=== PATIENT | female | born 1990 | race Caucasian/White ===

== ENCOUNTER 2019-07-03 01:26 | Inpatient (IN) ==
[2019-07-03] MEDS ORDERED: OXYTOCIN 30 UNITS/500 ML BAG IV PRN ×2 (02:11→08:45)
[2019-07-03 02:42] LABS: Hematocrit (blood only) 38.7 % (37-47); Hemoglobin 13.5 g/dL (12.0-16.0); Mean Corpuscular Hemoglobin 32.1 pg (25-34); Mean Corpuscular Volume 92.1 fL (80-100); Mean Platelet Volume 11.5 fL (7.4-10.4); Platelet Count 186 K/uL (130-400); RDW Coefficient of Variation 12.7 % (11.5-14.5); RDW Standard Deviation 42.9 fL (36.4-46.3)
[2019-07-03 02:45] LABS: Mean Corpuscular Hgb Conc 34.9 g/dL (32-36)
[2019-07-03] MEDS ORDERED: ePHEDrine sulfate 50 MG/ML AMP ONE (03:47)
[2019-07-03] MEDS ORDERED: fentaNYL citrate 100 MCG/2 ML VIAL ONE (03:47)
[2019-07-03] MEDS ORDERED: BUPIVACAINE 0.25% 30 ML VIAL ONE (03:47)
[2019-07-03] MEDS ORDERED: fentaNYL 2MCG/ML ROPIV 1.25MG/ML 100 ML BAG EPI ONE (03:48)
[2019-07-03] MEDS ORDERED: fentaNYL 2MCG/ML ROPIV 1.25MG/ML 100 ML BAG EPI PRN (04:01)
[2019-07-03] MEDS ORDERED: NALBUPHINE HCL INJ 10 MG/ML AMP IV PRN (04:01)
[2019-07-03] MEDS ORDERED: NALOXONE HCL 1 MG in SODIUM CHLORIDE 0.9% 1000ML 1,000 ML IV PRN (04:01)
[2019-07-03] MEDS ORDERED: ePHEDrine sulfate 50 MG/ML AMP IV PRN (04:01)
[2019-07-03] MEDS ORDERED: ONDANSETRON INJ 2 MG/ML 2 ML VIAL IV PRN (04:01)
[2019-07-03] MEDS ORDERED: DiphenhydrAMINE HCL 50 MG/ML VIAL IV PRN (04:01)
[2019-07-03] MEDS ORDERED: NALOXONE HCL 0.4 MG/1 ML VIAL/CARP IV PRN (04:01)
--- NOTE | 2019-07-03 04:10 | Anesthesiology Consultation ---
Date of Service July 03, 2019 Assessment & Plan Chart Review Chart Review: Patient NOT seen in Pre Admission Testing and Acceptable Risk for Labor Epidural Consults Requested none ASA ASA2 Proposed Anesthesia Anesthesia Type: Labor Epidural and CSE Risk / Benefits Reviewed With: PT / POA / Parent / Guardian, Accepts Plan and Informed Consent Obtained History Height/Weight Height: 5 ft 8 in Weight: 87.09 kg Allergies Allergy/AdvReac Type Severity Reaction Status Date / Time No Known Allergies Allergy Verified 06/29/19 13:01 Medications Home Medications Medication Instructions Recorded Confirmed Last Taken vitamin #56-iron 35 mg 1 cap PO DAILY 01/22/19 07/03/19 07/02/19 10:00 and 5 mg-folic acid 1 mg-dha capsule sertraline 50 mg tablet 50 mg PO DAILY #90 tab 03/08/19 07/03/19 07/02/19 10:00 NPO Date Last Intake of Fluids: 07/03/19 Time Last Intake of Fluids: 03:30 Date Last Intake of Solids: 07/03/19 Time Last Intake of Solids: 03:30 Past Medical History Medical History Varicella Exercise / Class Metabolic Activity II 4-5 Yardwork/Stairs/Walk up hill Past Family History Family History Grandmother (Maternal) Multiple gestation Mother Depression Past Surgical History Surgical History S/P wisdom tooth extraction Past Anesthesia History No Hx of Anesthesia Complications and No Family Hx of Anesthesia Complications History of PONV No Hx of PONV and No Hx of Motion Sickness Social History Smoking Status: Never smoker Do You Dip or Chew Tobacco: No Hx Alcohol Use: No Hx Substance Use: No substance use type: does not use Review of Systems no chest pain or sob Physical Exam Vital Signs Last Vital Signs Temp 36.7 C 07/03/19 01:48 Pulse 60 07/03/19 04:03 Resp 18 07/03/19 01:48 BP 117/80 07/03/19 03:32 Pulse Ox 99 07/03/19 04:03 ENMT Mouth: no TMJ abnormality Thyromental Distance: > or= 3.5 Finger Breadths Mallampati Class: II Neck normal visual inspection Respiratory normal respiratory effort Auscultation: lungs clear to auscultation bilaterally Cardiovascular Rate/Rhythm: regular rate and regular rhythm Musculoskeletal Spine: normal cervical ROM Neurologic moves all extremities Psychiatric Orientation: alert and oriented x 3 Testing Laboratory Results 07/03/19 02:29
[2019-07-03] MEDS: LACTATED RINGER'S 1,000 ML IV PRN ×3 (04:42→07:46)
--- NOTE | 2019-07-03 06:53 | Labor Progress Brief Note ---
Date of Service July 03, 2019 Subjective Comfortable with epidural Assessment & Plan (1) Normal labor and delivery: Spontaneous onset of labor, now ruptured, epidural in place. Making change, continue current management. Physical Exam Physical Exam: 80/-2 AROM light mec stained fluid, copious. FHT Cat 1 toco Q3. Results & Data Vital Signs (Past 12 Hours) Vital Signs Temp Pulse Resp BP Pulse Ox 07/03/19 06:48 63 100 07/03/19 06:43 64 100 07/03/19 06:42 59 L 117/76 07/03/19 06:38 62 100 07/03/19 06:33 59 L 100 07/03/19 06:28 66 112/79 100 07/03/19 06:23 62 100 07/03/19 06:18 67 100 07/03/19 06:13 64 124/68 99 07/03/19 06:08 58 L 99 07/03/19 06:03 57 L 97 07/03/19 06:01 98.2 F 07/03/19 05:58 58 L 97 07/03/19 05:57 58 L 96/51 L 07/03/19 05:53 57 L 97 07/03/19 05:48 62 97 07/03/19 05:43 59 L 96 07/03/19 05:42 57 L 95/51 L 07/03/19 05:38 59 L 97 07/03/19 05:33 59 L 97 07/03/19 05:32 62 102/58 L 07/03/19 05:31 16 07/03/19 05:28 58 L 97 07/03/19 05:27 56 L 93/54 L 07/03/19 05:23 58 L 96 07/03/19 05:18 57 L 96 07/03/19 05:13 54 L 97/53 L 98 07/03/19 05:08 56 L 98 07/03/19 05:03 58 L 98 07/03/19 05:01 98.2 F 16 07/03/19 04:59 56 L 101/59 L 07/03/19 04:58 56 L 99 07/03/19 04:53 65 99 07/03/19 04:48 55 L 97/55 L 99 07/03/19 04:43 63 99 07/03/19 04:42 66 95/58 L 07/03/19 04:39 100/59 L 07/03/19 04:38 63 103/58 L 99 07/03/19 04:37 68 104/58 L 07/03/19 04:35 60 101/57 L 07/03/19 04:34 61 106/56 L 07/03/19 04:33 65 100 07/03/19 04:29 70 139/81 07/03/19 04:28 76 100 07/03/19 04:24 63 131/90 07/03/19 04:23 64 100 07/03/19 04:18 58 L 100 07/03/19 04:13 59 L 99 07/03/19 04:08 63 99 07/03/19 04:03 60 99 07/03/19 03:58 60 99 07/03/19 03:53 59 L 98 07/03/19 03:32 60 117/80 07/03/19 01:48 98.1 F 57 L 18 125/77 07/03/19 01:45 98.1 F 18 07/03/19 01:41 57 L 125/77 07/03/19 01:40 56 L 123/73 Coding Level of Care Code None Diagnoses Normal labor and delivery O80
--- NOTE | 2019-07-03 08:45 | Labor Progress Brief Note ---
Date of Service July 03, 2019 Subjective Reason For Note: Other (Change of shift) Change of shift note: The patient is a 29-year-old 1 para 0, EDC of 30 June, at 40+ weeks gestational age who was admitted to labor and delivery. The patient had documented cervical change and was admitted for labor. Change of shift with provider assuming care for the patient at 0830 on 02 July. The patient has had a benign course. Her blood type is A+, antibody negative, rubella immune, hepatitis B negative, negative cell free DNA screen, declined cystic fibrosis and SMA screen, elevated 1 hour Glucola at 16 weeks, normal 2-hour glucose tolerance test at 16 and 28 weeks, and a negative third trimester beta strep culture. Assessment & Plan (1) Prolonged , antepartum: -Tracing category 2 with moderate variability and accelerations -No appreciable cervical change in the last 3 hours -Will start Pitocin augmentation for arrest of dilatation -All questions answered of the patient -Anticipate vaginal delivery Physical Exam Gastrointestinal (Abdomen): Abdomen: Gravid, vertex, positive heart tones, estimated weight of 8 pounds Genitourinary: Cervix: 6 cm / 80%/-2 station Results & Data Vital Signs (Past 12 Hours) Vital Signs Temp Pulse Resp BP Pulse Ox 07/03/19 08:38 64 97 07/03/19 08:33 65 99 07/03/19 08:28 68 99 07/03/19 08:27 75 118/70 07/03/19 08:23 70 99 07/03/19 08:18 61 98 07/03/19 08:13 64 121/68 96 07/03/19 08:08 64 98 07/03/19 08:03 69 98 07/03/19 07:58 69 130/87 99 07/03/19 07:53 80 99 07/03/19 07:48 58 L 99 07/03/19 07:43 66 112/73 98 07/03/19 07:38 60 98 07/03/19 07:33 58 L 98 07/03/19 07:28 67 99 07/03/19 07:27 67 113/76 07/03/19 07:23 68 99 07/03/19 07:18 70 99 07/03/19 07:13 58 L 98 07/03/19 07:12 98.4 F 63 20 121/83 07/03/19 07:08 67 100 07/03/19 07:03 64 99 07/03/19 06:58 63 98 07/03/19 06:57 62 113/74 07/03/19 06:53 57 L 100 07/03/19 06:48 63 100 07/03/19 06:43 64 100 07/03/19 06:42 59 L 117/76 07/03/19 06:38 62 100 07/03/19 06:33 59 L 100 07/03/19 06:30 16 07/03/19 06:28 66 112/79 100 07/03/19 06:23 62 100 07/03/19 06:18 67 100 07/03/19 06:13 64 124/68 99 07/03/19 06:08 58 L 99 07/03/19 06:03 57 L 97 07/03/19 06:01 98.2 F 07/03/19 05:58 58 L 97 07/03/19 05:57 58 L 96/51 L 07/03/19 05:53 57 L 97 07/03/19 05:48 62 97 07/03/19 05:43 59 L 96 07/03/19 05:42 57 L 95/51 L 07/03/19 05:38 59 L 97 07/03/19 05:33 59 L 97 07/03/19 05:32 62 102/58 L 07/03/19 05:31 16 07/03/19 05:28 58 L 97 07/03/19 05:27 56 L 93/54 L 07/03/19 05:23 58 L 96 07/03/19 05:18 57 L 96 07/03/19 05:13 54 L 97/53 L 98 07/03/19 05:08 56 L 98 07/03/19 05:03 58 L 98 07/03/19 05:01 98.2 F 07/03/19 04:59 56 L 101/59 L 07/03/19 04:58 56 L 99 07/03/19 04:53 65 99 07/03/19 04:48 55 L 97/55 L 99 07/03/19 04:43 63 99 07/03/19 04:42 66 95/58 L 07/03/19 04:39 100/59 L 07/03/19 04:38 63 103/58 L 99 07/03/19 04:37 68 104/58 L 07/03/19 04:35 98.6 F 60 16 101/57 L 07/03/19 04:34 61 106/56 L 07/03/19 04:33 65 100 07/03/19 04:29 70 139/81 07/03/19 04:28 76 100 07/03/19 04:24 63 131/90 07/03/19 04:23 64 100 07/03/19 04:18 58 L 100 07/03/19 04:13 59 L 99 07/03/19 04:08 63 99 07/03/19 04:03 60 99 07/03/19 03:58 60 99 07/03/19 03:53 59 L 98 07/03/19 03:32 60 117/80 07/03/19 01:48 98.1 F 57 L 18 125/77 07/03/19 01:45 98.1 F 18 07/03/19 01:41 57 L 125/77 07/03/19 01:40 56 L 123/73 Coding Diagnoses Prolonged , antepartum O48.1
--- NOTE | 2019-07-03 12:12 | Labor Progress Brief Note ---
Date of Service July 03, 2019 Subjective Reason For Note: Routine Evaluation Assessment & Plan (1) Prolonged , antepartum: - tracing Cat II, moderate variability with accelerations3 - will begin 2nd stage Physical Exam Genitourinary: Cervix: Complete/(+)1-(+)2 Results & Data Vital Signs (Past 12 Hours) Vital Signs Temp Pulse Resp BP Pulse Ox 07/03/19 12:03 75 99 07/03/19 11:58 59 L 97 07/03/19 11:57 67 105/73 07/03/19 11:53 67 98 07/03/19 11:48 60 99 07/03/19 11:43 67 112/69 98 07/03/19 11:38 62 98 07/03/19 11:33 66 98 07/03/19 11:28 63 122/80 99 07/03/19 11:23 62 99 07/03/19 11:18 64 98 07/03/19 11:13 60 117/79 98 07/03/19 11:08 66 99 07/03/19 11:03 67 99 07/03/19 10:58 64 99 07/03/19 10:57 71 108/67 07/03/19 10:53 69 99 07/03/19 10:48 73 99 07/03/19 10:43 79 100 07/03/19 10:42 68 129/80 07/03/19 10:38 82 98 07/03/19 10:33 64 98 07/03/19 10:28 68 99 07/03/19 10:27 79 115/84 07/03/19 10:23 66 99 07/03/19 10:18 72 99 07/03/19 10:13 83 109/76 99 07/03/19 10:08 68 99 07/03/19 10:03 65 98 07/03/19 09:58 64 113/70 98 07/03/19 09:53 61 98 07/03/19 09:48 75 97 07/03/19 09:43 62 110/71 97 07/03/19 09:38 63 98 07/03/19 09:33 62 97 07/03/19 09:28 60 109/73 97 07/03/19 09:23 66 97 07/03/19 09:18 62 97 07/03/19 09:13 58 L 97 07/03/19 09:12 81 99/60 L 07/03/19 09:08 71 98 07/03/19 09:03 61 98 07/03/19 09:00 98.4 F 20 07/03/19 08:58 64 118/79 98 07/03/19 08:53 67 98 07/03/19 08:48 62 97 07/03/19 08:43 82 98 07/03/19 08:42 68 110/69 07/03/19 08:38 64 97 07/03/19 08:33 65 99 07/03/19 08:28 68 99 07/03/19 08:27 75 118/70 07/03/19 08:23 70 99 07/03/19 08:18 61 98 07/03/19 08:13 64 121/68 96 07/03/19 08:08 64 98 07/03/19 08:03 69 98 07/03/19 07:58 69 130/87 99 07/03/19 07:53 80 99 07/03/19 07:48 58 L 99 07/03/19 07:43 66 112/73 98 07/03/19 07:38 60 98 07/03/19 07:33 58 L 98 07/03/19 07:28 67 99 07/03/19 07:27 67 113/76 07/03/19 07:23 68 99 07/03/19 07:18 70 99 07/03/19 07:13 58 L 98 07/03/19 07:12 98.4 F 63 20 121/83 07/03/19 07:08 67 100 07/03/19 07:03 64 99 07/03/19 06:58 63 98 07/03/19 06:57 62 113/74 07/03/19 06:53 57 L 100 07/03/19 06:48 63 100 07/03/19 06:43 64 100 07/03/19 06:42 59 L 117/76 07/03/19 06:38 62 100 07/03/19 06:33 59 L 100 07/03/19 06:30 16 07/03/19 06:28 66 112/79 100 07/03/19 06:23 62 100 07/03/19 06:18 67 100 07/03/19 06:13 64 124/68 99 07/03/19 06:08 58 L 99 07/03/19 06:03 57 L 97 07/03/19 06:01 98.2 F 16 07/03/19 05:58 58 L 97 07/03/19 05:57 58 L 96/51 L 07/03/19 05:53 57 L 97 07/03/19 05:48 62 97 07/03/19 05:43 59 L 96 07/03/19 05:42 57 L 95/51 L 07/03/19 05:38 59 L 97 07/03/19 05:33 59 L 97 07/03/19 05:32 62 102/58 L 07/03/19 05:31 16 07/03/19 05:28 58 L 97 07/03/19 05:27 56 L 93/54 L 07/03/19 05:23 58 L 96 07/03/19 05:18 57 L 96 07/03/19 05:13 54 L 97/53 L 98 07/03/19 05:08 56 L 98 07/03/19 05:03 58 L 98 07/03/19 05:01 98.2 F 16 07/03/19 04:59 56 L 101/59 L 07/03/19 04:58 56 L 99 07/03/19 04:53 65 99 07/03/19 04:48 55 L 97/55 L 99 07/03/19 04:43 63 99 07/03/19 04:42 66 95/58 L 07/03/19 04:39 100/59 L 07/03/19 04:38 63 103/58 L 99 07/03/19 04:37 68 104/58 L 07/03/19 04:35 98.6 F 60 16 101/57 L 07/03/19 04:34 61 106/56 L 07/03/19 04:33 65 100 07/03/19 04:29 70 139/81 07/03/19 04:28 76 100 07/03/19 04:24 63 131/90 07/03/19 04:23 64 100 07/03/19 04:18 58 L 100 07/03/19 04:13 59 L 99 07/03/19 04:08 63 99 07/03/19 04:03 60 99 07/03/19 03:58 60 99 07/03/19 03:53 59 L 98 07/03/19 03:32 60 117/80 07/03/19 01:48 98.1 F 57 L 18 125/77 07/03/19 01:45 98.1 F 18 07/03/19 01:41 57 L 125/77 07/03/19 01:40 56 L 123/73 Coding Level of Care Code None Diagnoses Prolonged , antepartum O48.1
--- NOTE | 2019-07-03 15:19 | Labor Progress Brief Note ---
Date of Service July 03, 2019 Subjective Reason For Note: Routine Evaluation Assessment & Plan (1) Prolonged , antepartum: - tracing Cat II, variability and accels - pt pushing for 2 1/2 hours - caput at perineum Physical Exam Genitourinary: Cervix: Complete/ALICJA/(+)2-(+)3 Results & Data Vital Signs (Past 12 Hours) Vital Signs Temp Pulse Resp BP Pulse Ox 07/03/19 15:14 109 H 144/71 H 97 07/03/19 15:13 87 130/74 07/03/19 15:10 110 H 92 07/03/19 15:09 95 H 97 07/03/19 15:04 84 97 07/03/19 14:59 103 H 98 07/03/19 14:58 109 H 87 L 07/03/19 14:54 115 H 98 07/03/19 14:52 100 H 89 L 07/03/19 14:49 91 H 83 L 07/03/19 14:46 86 90 07/03/19 14:44 92 H 97 07/03/19 14:43 65 127/63 07/03/19 14:39 85 98 07/03/19 14:34 74 100 07/03/19 14:29 84 98 07/03/19 14:28 92 H 89 L 07/03/19 14:27 87 139/73 07/03/19 14:24 86 97 07/03/19 14:19 118 H 98 07/03/19 14:14 92 H 100 07/03/19 14:13 77 124/75 07/03/19 14:09 85 100 07/03/19 14:05 98.1 F 22 07/03/19 14:04 71 100 07/03/19 14:03 75 89 L 07/03/19 13:58 86 99 07/03/19 13:57 75 122/74 07/03/19 13:53 88 100 07/03/19 13:48 96 H 100 07/03/19 13:44 87 88 L 07/03/19 13:43 68 98 07/03/19 13:42 90 117/69 07/03/19 13:39 83 93 07/03/19 13:38 70 97 07/03/19 13:34 83 81 L 07/03/19 13:33 98 H 99 07/03/19 13:28 72 100 07/03/19 13:27 92 H 117/71 80 L 07/03/19 13:23 68 100 07/03/19 13:21 93 H 83 L 07/03/19 13:18 104 H 100 07/03/19 13:14 80 91 07/03/19 13:13 81 117/64 93 07/03/19 13:08 96 H 100 07/03/19 13:03 82 100 07/03/19 12:58 89 100 07/03/19 12:57 66 121/62 07/03/19 12:53 91 H 100 07/03/19 12:48 78 100 07/03/19 12:43 71 117/69 100 07/03/19 12:38 65 100 07/03/19 12:33 64 99 07/03/19 12:28 65 116/72 99 07/03/19 12:23 65 100 07/03/19 12:18 65 100 07/03/19 12:13 69 118/75 99 07/03/19 12:08 73 99 07/03/19 12:03 75 99 07/03/19 11:58 59 L 97 07/03/19 11:57 67 105/73 07/03/19 11:53 67 98 07/03/19 11:48 60 99 07/03/19 11:43 67 112/69 98 07/03/19 11:38 62 98 07/03/19 11:33 66 98 07/03/19 11:28 63 122/80 99 07/03/19 11:23 62 99 07/03/19 11:18 64 98 07/03/19 11:13 60 117/79 98 07/03/19 11:08 66 99 07/03/19 11:03 67 99 07/03/19 10:58 64 99 07/03/19 10:57 71 108/67 07/03/19 10:53 69 99 07/03/19 10:48 73 99 07/03/19 10:43 79 100 07/03/19 10:42 68 129/80 07/03/19 10:38 82 98 07/03/19 10:33 64 98 07/03/19 10:28 68 99 07/03/19 10:27 79 115/84 07/03/19 10:23 66 99 07/03/19 10:18 72 99 07/03/19 10:13 83 109/76 99 07/03/19 10:08 68 99 07/03/19 10:03 65 98 07/03/19 09:58 64 113/70 98 07/03/19 09:53 61 98 07/03/19 09:48 75 97 07/03/19 09:43 62 110/71 97 07/03/19 09:38 63 98 07/03/19 09:33 62 97 07/03/19 09:28 60 109/73 97 07/03/19 09:23 66 97 07/03/19 09:18 62 97 07/03/19 09:13 58 L 97 07/03/19 09:12 81 99/60 L 07/03/19 09:08 71 98 07/03/19 09:03 61 98 07/03/19 09:00 98.4 F 20 07/03/19 08:58 64 118/79 98 07/03/19 08:53 67 98 07/03/19 08:48 62 97 07/03/19 08:43 82 98 07/03/19 08:42 68 110/69 07/03/19 08:38 64 97 07/03/19 08:33 65 99 07/03/19 08:28 68 99 07/03/19 08:27 75 118/70 07/03/19 08:23 70 99 07/03/19 08:18 61 98 07/03/19 08:13 64 121/68 96 07/03/19 08:08 64 98 07/03/19 08:03 69 98 07/03/19 07:58 69 130/87 99 07/03/19 07:53 80 99 07/03/19 07:48 58 L 99 07/03/19 07:43 66 112/73 98 07/03/19 07:38 60 98 07/03/19 07:33 58 L 98 07/03/19 07:28 67 99 07/03/19 07:27 67 113/76 07/03/19 07:23 68 99 07/03/19 07:18 70 99 07/03/19 07:13 58 L 98 07/03/19 07:12 98.4 F 63 20 121/83 07/03/19 07:08 67 100 07/03/19 07:03 64 99 07/03/19 06:58 63 98 07/03/19 06:57 62 113/74 07/03/19 06:53 57 L 100 07/03/19 06:48 63 100 07/03/19 06:43 64 100 07/03/19 06:42 59 L 117/76 07/03/19 06:38 62 100 07/03/19 06:33 59 L 100 07/03/19 06:30 16 07/03/19 06:28 66 112/79 100 07/03/19 06:23 62 100 07/03/19 06:18 67 100 07/03/19 06:13 64 124/68 99 07/03/19 06:08 58 L 99 07/03/19 06:03 57 L 97 07/03/19 06:01 98.2 F 07/03/19 05:58 58 L 97 07/03/19 05:57 58 L 96/51 L 07/03/19 05:53 57 L 97 07/03/19 05:48 62 97 07/03/19 05:43 59 L 96 07/03/19 05:42 57 L 95/51 L 07/03/19 05:38 59 L 97 07/03/19 05:33 59 L 97 07/03/19 05:32 62 102/58 L 07/03/19 05:31 16 07/03/19 05:28 58 L 97 07/03/19 05:27 56 L 93/54 L 07/03/19 05:23 58 L 96 07/03/19 05:18 57 L 96 07/03/19 05:13 54 L 97/53 L 98 07/03/19 05:08 56 L 98 07/03/19 05:03 58 L 98 07/03/19 05:01 98.2 F 07/03/19 04:59 56 L 101/59 L 07/03/19 04:58 56 L 99 07/03/19 04:53 65 99 07/03/19 04:48 55 L 97/55 L 99 07/03/19 04:43 63 99 07/03/19 04:42 66 95/58 L 07/03/19 04:39 100/59 L 07/03/19 04:38 63 103/58 L 99 07/03/19 04:37 68 104/58 L 07/03/19 04:35 98.6 F 60 16 101/57 L 07/03/19 04:34 61 106/56 L 07/03/19 04:33 65 100 07/03/19 04:29 70 139/81 07/03/19 04:28 76 100 07/03/19 04:24 63 131/90 07/03/19 04:23 64 100 07/03/19 04:18 58 L 100 07/03/19 04:13 59 L 99 07/03/19 04:08 63 99 07/03/19 04:03 60 99 07/03/19 03:58 60 99 07/03/19 03:53 59 L 98 07/03/19 03:32 60 117/80 Coding Level of Care Code None Diagnoses Prolonged , antepartum O48.1
[2019-07-03] MEDS: OXYTOCIN 30 UNITS/500 ML BAG IV PRN ×2 (15:29→16:28)
--- NOTE | 2019-07-03 15:59 | Delivery Summary ---
Vaginal Delivery Summary Date of Service July 03, 2019 Vaginal Delivery Summary Findings: Viable male infant with Apgars of 8 and 9. Baby delivered over a midline episiotomy with third-degree extension. Nuchal cord x2 reduced on the perineum. Cord clamped and cut. True knot in the umbilical cord. Cord gases and cord blood samples obtained. Meconium stained placenta delivered and sent for pathological evaluation. Third-degree tear repaired with 3 interrupted 2-0 Vicryl's. Episiotomy repaired in routine fashion. Estimated blood loss 300 cc. Labor note: The patient is a 29-year-old 1 para 0, EDC of 30 June, at 40+ weeks gestational age who was admitted to labor and delivery. The patient had documented cervical change and was admitted for labor. Change of shift with provider assuming care for the patient at 0830 on 02 July. The patient has had a benign course. Her blood type is A+, antibody negative, rubella immune, hepatitis B negative, negative cell free DNA screen, declined cystic fibrosis and SMA screen, elevated 1 hour Glucola at 16 weeks, normal 2-hour glucose tolerance test at 16 and 28 weeks, and a negative third trimester beta strep culture. Upon assumption of care the patient cervix was 6 cm dilated 80% -2 station. She was comfortable with the epidural. 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 Pitocin augmentation was begun for secondary arrest of dilatation. Over the next 5 hours the patient progressed to full dilatation. Tracing continued to be category 2 with moderate variability and accelerations. The patient then began her second stage. She pushed for 2-1/2hours. She delivered the baby over midline episiotomy with third-degree extension. Nuchal cord x2 was reduced on the perineum. Cord was clamped and cut. Cord gases and cord blood samples were obtained. True knot was noted in the umbilical cord. Placenta was delivered spontaneously and was noted to be meconium and stained. It was sent for pathological evaluation. The ends of the sphincter muscles were located bilaterally and reapproximated with 3 [id number] 2-0 Vicryl sutures. The episiotomy was repaired with 4-0 and 2-0 Vicryl in a routine fashion. Estimated blood loss was 300 cc. Sponge and needle count was correct.
[2019-07-03 16:00] LABS: Base Excess Cord Venous Blood -5.9 mEq/L (-7.7-1.9); Cord Venous Blood HCO3 19 mmol/L (18.4-26.8); Cord Venous Blood PCO2 34 mmHg (30.4-57.2); Cord Venous Blood PO2 30 mmHg (14.1-43.3); Cord Venous Blood pH 7.35 (7.20-7.44)
[2019-07-03 16:03] LABS: Base Excess Cord Arterial Bld -7.8 mEq/L (-9-1.8); CO2 Cord Arterial Blood 51 mmHg (39.1-73.5); HCO3 Cord Arterial Blood 20 mmol/L (19.7-28.5); PO2 Cord Arterial Blood 36 mmHg (4.1-31.7); pH Cord Arterial Blood 7.22 (7.1-7.38)
[2019-07-03] MEDS ORDERED: HYDROCORTISONE ACETATE 25 MG SUPP PR PRN (16:10)
[2019-07-03] MEDS ORDERED: ACETAMINOPHEN 325 MG TAB PO PRN (16:10)
[2019-07-03] MEDS ORDERED: SUPERCREAM 0.870% 15 GM JAR EXT PRN (16:10)
[2019-07-03] MEDS ORDERED: DIPHTHERIA/TETANUS/PERTUSSIS 0.5 ML SYR/VIAL IM ONE (16:10)
[2019-07-03] MEDS ORDERED: ACETAMINOPHEN W/CODEINE #3 1 TAB PO PRN (16:10)
[2019-07-03] MEDS ORDERED: BENZOCAINE 20% AER SPR 82.5 GM CAN EXT PRN (16:10)
[2019-07-03] MEDS: IBUPROFEN 600 MG TAB PO PRN ×2 (16:30→23:40)
--- NOTE | 2019-07-03 17:39 | Anesthesia Procedure Note ---
Date of Service July 03, 2019 Anesthesia Post Epidural Note Vital Signs Vital Signs: Temp Pulse Resp BP Pulse Ox 37.0 C 86 18 119/61 97 07/03/19 15:45 07/03/19 17:30 07/03/19 17:15 07/03/19 17:30 07/03/19 15:24 Pain Intensity Medial Perineal: Pain Intensity: 2 Notes Mental Status: alert / awake / arousable and participated in evaluation Nausea / Vomiting: adequately controlled Pain: adequately controlled Airway Patency, RR, SpO2: stable & adequate BP & HR: stable & adequate Hydration State: stable & adequate Neuraxial Anesthesia: was administered and sensory block is resolving Anesthetic Complications: no major complications apparent and Pt Satisfied with anesthetic care Epidural: Removed without complications and With tip intact Notes: Epidural site clean, dry and intact. No signs of edema, erythema or bruising at insertion site. Pt instructed to request anesthesia if she has residual lower extremity numbness or if she develops lower extremity pain or weakness, back pain or headache.
[2019-07-03] MEDS: DOCUSATE SODIUM 100 MG CAP PO SCH (21:23)
[2019-07-04] MEDS: IBUPROFEN 600 MG TAB PO PRN ×3 (03:37→20:47)
[2019-07-04 07:18] LABS: Hematocrit (blood only) 29.4 % (37-47); Hemoglobin 10.2 g/dL (12.0-16.0); Mean Corpuscular Hemoglobin 32.3 pg (25-34); Mean Corpuscular Hgb Conc 34.7 g/dL (32-36); Platelet Count 173 K/uL (130-400); RDW Standard Deviation 44.2 fL (36.4-46.3); Red Blood Count 3.16 M/uL (4.2-5.4); White Blood Count 20.72 K/uL (4.8-10.8)
--- NOTE | 2019-07-04 07:21 | Obstetrical Progress Note ---
Date of Service July 04, 2019 Assessment & Plan (1) Prolonged , antepartum: - H/H stable - reviewed labor & delivery - all questions answered - routine care - doing well Subjective Ambulation: ambulating normally Voiding: no voiding problems Feeding Type:: breast feeding Physical Exam Constitutional WD/WN, vitals as above Gastrointestinal (Abdomen) Fundus firm below umbilicus Musculoskeletal No deep calf tenderness Results & Data Vital Signs (Past 12 Hours) Vital Signs Temp Pulse Resp BP Pulse Ox 07/04/19 03:53 97.5 F L 82 20 117/68 07/03/19 23:17 97.9 F 69 20 112/68 07/03/19 19:30 98.6 F 90 18 125/69 97
[2019-07-04] MEDS: FERROUS SULFATE 325 MG TAB PO SCH (08:58)
[2019-07-04] MEDS: SERTRALINE HCL 50 MG TABLET PO SCH (08:59)
[2019-07-04] MEDS: DOCUSATE SODIUM 100 MG CAP PO SCH ×2 (08:59→20:46)
[2019-07-04] MEDS: PRENATAL VITAMIN 1 TAB PO SCH (08:59)
[2019-07-04] MEDS ORDERED: bisacodyL 5 MG TABEC PO SCH (20:00)
--- NOTE | 2019-07-05 07:48 | Obstetrical Progress Note ---
Date of Service July 05, 2019 Assessment & Plan (1) Encounter for care and examination after delivery: satisfactory progress wishes to be discharged if baby discharged Day #:: 1 Subjective Ambulation: ambulating normally Voiding: no voiding problems Passing Gas:: Yes Diet Tolerance:: regular diet Lochia:: Moderate Feeding Type:: breast feeding Review of Systems All systems reviewed & are unremarkable except as noted in HPI & below Physical Exam Constitutional WD/WN, vitals as above Psychiatric A+Ox3, euthymic affect Genitourinary OB Exam Abdomen: + fundal height Fundus: + firm and + relation to umbilicus (1 below U) Results & Data Vital Signs (Past 12 Hours) Vital Signs Temp Pulse Resp BP 07/05/19 00:00 97.9 F 76 20 126/73
[2019-07-05] MEDS: FERROUS SULFATE 325 MG TAB PO SCH (08:28)
[2019-07-05] MEDS: PRENATAL VITAMIN 1 TAB PO SCH (08:28)
[2019-07-05] MEDS: DOCUSATE SODIUM 100 MG CAP PO SCH (08:28)
[2019-07-05] MEDS: SERTRALINE HCL 50 MG TABLET PO SCH (08:29)
== END 2019-07-05 11:06 | disposition home or self-care (01) | DRG 768 ==
LOC: OPB 01:26 → 4S1 01:30 → 4S2 18:29